=== PATIENT | female | born 1955 | race Caucasian/White ===

== ENCOUNTER 2022-05-11 14:50 | Outpatient (CLI) | payer OTHER, SELFPAY ==
[2022-05-11 21:53] LABS: Chloride* 99 mmol/L (96-114); Sodium* 140 mmol/L (135-149)
[2022-05-11 21:55] LABS: Creatinine* 0.8 mg/dL (0.5-1.5); Estimated Glomerular Filt Rate 81 ml/min
[2022-05-11 21:56] LABS: Blood Urea Nitrogen* 14 mg/dL (7-30); Calcium* 9.5 mg/dL (8.4-10.6); Carbon Dioxide* 33 mmol/L (20-32); Glucose* 102 mg/dL (60-115)
== END 2022-05-11 14:51 | disposition home or self-care (01) ==
LOC: LKVREF 14:50
PROVIDERS: PCP Emergency Medicine; Visit Provider Emergency Medicine
DX: I10 Essential (primary) hypertension (principal)
CPT/HCPCS: 80048

== ENCOUNTER 2022-07-25 09:41 | Outpatient (CLI) | payer OTHER, SELFPAY | END 2022-07-25 09:42 | disposition home or self-care (01) | LOC: LKVREF 07-27 09:45 | PROVIDERS: PCP Emergency Medicine; Visit Provider Emergency Medicine | DX: R73.03 Prediabetes (principal); E78.1 Pure hyperglyceridemia; R73.01 Impaired fasting glucose; E66.9 Obesity, unspecified; E78.5 Hyperlipidemia, unspecified; I10 Essential (primary) hypertension | CPT/HCPCS: 80053; 80061; 84443 ==

== ENCOUNTER 2023-11-06 09:55 | Outpatient (CLI) | payer OTHER, SELFPAY ==
--- OUTSIDE RECORDS SUMMARY | 2023-11-08 06:56 | XMS_ITS | Clinical Summary ---
Author Name Unknown Organization [facility] Address [place], [place] [address] Care Team Providers Care It Instructor Name Role Phone Person [facility] Primary Care Provider + Allergies Active Allergy Reactions Criticality Noted Date Comments Penicillins 03/27/2010 Sulfa (Sulfonamide Antibiotics) 03/10 Medications Medication Sig Dispensed Refills Start Date End Date Status oxycodone-acetamin ophen, 5-325 mg, (PERCOCET 5-325) 5-325 mg per tablet Take 1-2 tablets by mouth every 4 hours if needed for Pain. Max acetaminophen dose: 4000mg in 24 hrs. 15 tablet 0 03/27/2010 Active Family History Relation Name Status Comments Father Alive Mother Alive Social History Tobacco Use Types Packs/Day Years Used Date Smoking Tobacco: Never Smokeless Tobacco: Never Alcohol Use Standard Drinks/Week Comments Yes 0 (1 standard drink = 0.6 oz pur e alcohol) Sex and Gender Information Value Date Recorded Sex Assigned at Not on file Gender Identity Not on file Sexual Orientation Not on file Obstetrics History Last Filed Vital Signs Vital Sign Reading Time Taken Comments Blood Pressure 166/101 12/05/2017 5:53 PM CDT Pulse 70 12/05/2017 5:19 PM CDT Temperature 36.6 ??C (97.8 ??F) 12/05/2017 5:19 PM CD T Respiratory Rate 18 12/05/2017 5:19 PM CDT Oxygen Saturation 99% 12/05/2017 5:19 PM CDT Inhaled Oxygen Concentration - - Weight 97.5 kg (215 lb) 12/03/2017 3:53 PM CDT Height 177.8 cm (5' 10) 12/03/2017 3:53 PM CDT Body Mass Index 30.85 12/03/2017 3:53 PM CDT Plan of Treatment Health Maintenance Due Date Last Done Comments Tdap 1966 Depression screening for age 12+ 1967 BMI (ht and wt on same day) for age 18+ 1973 Hepatitis C screening for age 18-79 1973 Tetanus booster 1975 Colonoscopy through age 75 01/13/2000 Lipids for age 45-75 01/13/2000 Mammogram for age 45-75 01/13/2000 Zoster (shingles) series for age 50+ (1 of 2) 01/13/20 05 DEXA/DXA scan for age 65+ 01/13/2020 Pneumococcal series for age 65+ (1 of 1 - PCV) 020 COVID-19 vaccine series (1 - 2022- season) 3 Influenza for age 65+ 03/10/2024 Care Teams It Instructor Relationship Specialty Start Date End Date [place] [address] PCP - General 12/03/17
== END 2023-11-06 09:56 | disposition home or self-care (01) ==
LOC: NFLDREF 11-08 06:54
PROVIDERS: PCP Nurse Practitioner Family; Referring Provider Nurse Practitioner Family; Visit Provider Physician Assistant Medical
DX: R73.03 Prediabetes (principal); E78.1 Pure hyperglyceridemia; E66.9 Obesity, unspecified; I10 Essential (primary) hypertension; G47.33 Obstructive sleep apnea (adult) (pediatric)
CPT/HCPCS: 80048; 80061; 84443; 95806

== ENCOUNTER 2024-05-20 13:33 | Outpatient (CLI) | payer OTHER, SELFPAY ==
--- OUTSIDE RECORDS SUMMARY | 2024-05-20 13:35 | XMS_ITS | Clinical Summary ---
Author Organization [facility] Address [place], [place] [address] Care Team Providers Care Precision Millwright Name Role Phone [facility] Primary Care Provider + Allergies Active Allergy [...] 1 - PCV) 020 COVID-19 vaccine series ( - 2023- season) 4 Influenza for age 65+ 03/10/2024 Care Teams Precision Millwright Relationship Specialty Start Date End Date [facility] [place] [address] PCP - General 12/03/17
--- NOTE | 2024-05-20 13:45 | CRLHL7_ITS ---
For Patients: As a result of the Century Cures Act, medical imaging exams and procedure reports are released immediately into your electronic medical record. You may view this report before your referring provider. If you have questions, please contact your health care provider. CLINICAL HISTORY: Postmenopausal bleeding TECHNIQUE: Real time, black scale images were acquired of the pelvis using a transabdominal and transvaginal approach. Color Doppler analysis was performed of the ovaries. FINDINGS: Uterus measures 10.2 x 5.4 x 6.3 centimeters. The endometrium appears thickened measuring 2.7 centimeters and heterogeneous. Within the endometrium there is more focal hyperechoic area with some focal vascularity measuring 1.2 x 1 x 1.3 centimeters question possible polyp. Within the cervix there is a 2.6 x 1.9 x 3.1 centimeter hypoechoic possible lesion demonstrating some vascularity. A polyp or pedunculated fibroid is not completely excluded Right ovary appears normal measuring 1.8 x 1 x 1 centimeters with blood flow. The left ovary appears normal measuring 1.8 x 1.1 x 1.6 centimeters with blood flow present. There is no free fluid. IMPRESSION: 1. Abnormal thickened heterogeneous endometrium measuring 2.7 centimeters. Within the endometrium hyperechoic area with some increased vascularity measuring 1.2 x 1 x 1.3 centimeters. This raises possibility of polyp. A 2.6 by 1.9 x 3.1 cm hypoechoic possible lesion in the cervix demonstrating vascularity. Polyp or pedunculated leiomyoma fibroid not excluded. Direct visualization of the above findings and potential tissue sampling recommended. Dictated by Dulce Maria Henriquez MD @ 05/21/2024 9:12:19 AM (Electronically Signed)
== END 2024-05-20 13:34 | disposition home or self-care (01) ==
LOC: US 13:34
PROVIDERS: PCP Physician Assistant Medical; Visit Provider Obstetrics & Gynecology
DX: N95.0 Postmenopausal bleeding (principal); R93.89 Abnormal findings on diagnostic imaging of other specified body structures
CPT/HCPCS: 76830; 76856

== ENCOUNTER 2024-05-22 08:21 | Outpatient (CLI) | payer OTHER, SELFPAY ==
--- OUTSIDE RECORDS SUMMARY | 2024-05-23 14:52 | XMS_ITS | Clinical Summary ---
Author Organization [facility] Address [employer] [place], [place] [address] Care Team Providers Care Pharmacovigilance Specialist Name Role Phone [facility] Primary Care Provider + Allergies Active Allergy [...] Influenza for age 65+ 03/10/2024 Care Teams Pharmacovigilance Specialist Relationship Specialty Start [place] [address] PCP - General 12/03/17
== END 2024-05-22 08:22 | disposition home or self-care (01) ==
LOC: NFLDREF 05-23 14:50
PROVIDERS: PCP Physician Assistant Medical; Referring Provider Physician Assistant Medical; Visit Provider Physician Assistant Medical
DX: I10 Essential (primary) hypertension (principal); E78.5 Hyperlipidemia, unspecified; E78.1 Pure hyperglyceridemia; R73.03 Prediabetes
CPT/HCPCS: 80053; 80061

== ENCOUNTER 2024-07-08 09:12 | Outpatient (CLI) | payer OTHER, SELFPAY | END 2024-07-08 09:13 | disposition home or self-care (01) | LOC: LKVREF 09:13 | PROVIDERS: PCP Physician Assistant Medical; Visit Provider Family Medicine | DX: E66.01 Morbid (severe) obesity due to excess calories (principal) | CPT/HCPCS: 82533 ==

== ENCOUNTER 2025-03-14 09:02 | Outpatient (CLI) | payer OTHER, SELFPAY | END 2025-03-14 09:03 | disposition home or self-care (01) | LOC: LKVREF 16:54 | PROVIDERS: PCP Physician Assistant Medical; Referring Provider Physician Assistant Medical; Visit Provider Physician Assistant Medical | DX: I10 Essential (primary) hypertension (principal); R73.03 Prediabetes; E66.01 Morbid (severe) obesity due to excess calories; E78.1 Pure hyperglyceridemia; E78.5 Hyperlipidemia, unspecified; Z78.0 Asymptomatic menopausal state; Z01.83 Encounter for blood typing | CPT/HCPCS: 80053; 80061; 82043; 82306; 82570; 84443; 86900; 86901 ==